=== PATIENT | female | born 1950 | race Caucasian/White ===

== ENCOUNTER 2023-05-26 10:32 | Emergency (ER) | payer MEDICARE, OTHER, SELFPAY ==
[2023-05-26 10:37] VITALS: BMI 36.3
[2023-05-26 10:40] VITALS: BP 134/79; PULSE 58; RESP 17; TEMP 36.7; O2SAT 97
--- NOTE | 2023-05-26 10:58 | XR_ITS ---
WS: [id number] Exam: XR knee LT 3V* [id number] Date/Time of Exam: 05/26/2023 11:22 AM Reason For Exam: left knee pain s/p fall on stairs No acute fracture or dislocation. Moderate degenerative narrowing of the medial joint compartment. No rmal soft tissues. No joint effusion. IMPRESSION: 1. Moderate DJD of the medial compartment. No fracture.
--- NOTE | 2023-05-26 12:38 | CT_ITS ---
WS: [id number] CT HEAD NONCONTRAST HISTORY: vision changes and TODD TECHNIQUE: Contiguous axial imaging performed through the brain in 2.5 mm imaging. Bone and soft tiss ue windows. Sagittal and coronal reformats reviewed. All CT scans at [facility] use at least one of these dose optimization techniques: automated exposure control; mA and/or kV adjustment per pa tient size (includes targeted exams where dose is matched to clinical indication); or iterative recon struction. DLP: 1076.08 mGy.cm COMPARISON: 04/19/2009 No acute intracranial hemorrhage, midline shift or mass effect. Area of decreased attenuation in the LEFT frontal lobe on the axial images noted to be a prominent ngo lcus on the coronal and sagittal sequences. There is mild symmetric cerebral and cerebellar atrophy w ith minimal small vessel ischemic disease. Ventricles: Normal size with no hydrocephalus. No inferior displacement of cerebellar tonsils. Paranasal sinuses: As visualized are clear. Mastoid air cells: Well pneumatized. Calvarium and scalp: Skull is intact with no soft tissue edema or swelling. Mild atherosclerotic plaque in the intracranial carotid arteries. IMPRESSION: 1. No acute intracranial hemorrhage or edema. 2. Mild cerebral and cerebellar atrophy and small vessel ischemic disease.
--- NOTE | 2023-05-26 12:38 | XR_ITS ---
WS: [id number] Exam: XR chest 1V portable [id number] Date/Time of Exam: 05/26/2023 12:38 PM Reason For Exam: chest pain Comparison 04/19/2009. The lungs are clear and fully expanded. Normal cardiomediastinal silhouette for technique. No pleural effusions. Bony structures are intact. High riding RIGHT humeral head probably indicates longstandin g rotator cuff tear. IMPRESSION: 1. No acute cardiopulmonary finding.
--- NOTE | 2023-05-26 12:38 | XR_ITS ---
WS: [id number] Exam: XR knee RT 3V* [id number] Date/Time of Exam: 05/26/2023 12:38 PM Reason For Exam: knee pain after fall No fracture or dislocation. Moderately advanced tricompartmental degenerative change. Probable loose joint bodies. No joint effusion. Unremarkable soft tissues. IMPRESSION: 1. Advanced tricompartmental DJD. Probable loose joint bodies. 2. No fracture.
--- NOTE | 2023-05-26 12:41 | W.ED.EXTPRO ---
Documented by User: Vania Hatch, SURVEY FIELD TECHNICIAN-C 06/02/23 07:02 HPI - Extremity Problem General: Chief complaint: Extremity Injury, Lower Stated complaint: fall Time Seen by Provider: 05/26/23 10:47 History of Present Illness: Patient reports today that she has had 2 falls while here with her significant other who is hospitalized. Patient states that she has a history of stroke with right-sided late effects 2 years ago, and history of 2 heart attacks. She reports that over the past couple of weeks she has been having some left-sided chest pain however she was thinking it was just stress from all of the medical issues of her significant other. She reports that this morning she had been having chest pain she has also noticed a lot more dizziness lately. She states that she was walking and tripped over something in the floor this morning in the hospital causing her to fall. She does not recall hitting her head or losing consciousness. She states that that happened around 830 this morning and just a few minutes after that she noticed that she was having tunnel vision. She reports that her balance has been off and she has been struggling with the tunnel vision and trying to be very careful. She states that a little bit later in the day she was walking and fell onto her knee. She reports that she did not hit her head that she knows of and she did not have loss of consciousness. She complains of right-sided knee pain now. She states that she is generally sore all over. She reports that she is not currently having chest pain but was this morning prior to the fall. She denies fever or chills. She does report that she is on anticoagulant medications. Associated symptoms: Reports chest pain; Deny fever(s) Review of Systems Const: Denies: fever(s) or chills Eyes: Reports: change in vision Card: Reports: chest pain and lightheadedness; Denies: palpitations or irregular heart rhythm Resp: Denies: dyspnea, productive cough or non-productive cough GI: Denies: abdominal pain, nausea or vomiting : Denies: flank pain, difficulty voiding or dysuria Musc: Reports: extremity pain and joint pain Neuro: Reports: headache(s) (Off and on for the past couple of weeks) and lack of coordination Physical Exam Const: COMMON NORMALS: no acute distress, patient oriented x3 and alert HENMT: COMMON NORMALS: normocephalic, hearing grossly normal bilaterally and moist oral mucous membranes HEAD & SCALP: normocephalic Eye: COMMON NORMALS: Equal, round and reactive pupils present, EOMs intact bilaterally and conjunctivae normal CONJUNCTIVA: Yes conjunctivae normal PUPIL: Yes Equal, round and reactive pupils present Neck/C-Spine: COMMON NORMALS: no JVD Resp: COMMON NORMALS: normal respiratory effort, No use of accessory muscles and clear to auscultation bilaterally AUSCULTATION: clear to auscultation bilaterally Cardio: COMMON NORMALS: no JVD, regular rate, regular rhythm, S1 normal heart sound present and S2 normal heart sound present RATE: regular rate RHYTHM: regular rhythm HEART SOUNDS: S1 normal heart sound present and S2 normal heart sound present GI: COMMON NORMALS: Normal to inspection, nondistended, normoactive bowel sounds present, Soft to palpation and non-tender PALPATION: Yes Soft to palpation Neuro: COMMON NORMALS: patient oriented x3, CN's II-XII intact bilaterally (Slight weakness noted to the right upper extremity-late effect previous CVA) and moves all extremities SENSORIUM/ORIENTATION: Yes alert Course Vital Signs: Vital signs: Vital Signs Temperature 98.0 F 05/26/23 10:40 Pulse Rate 60 05/26/23 17:46 Respiratory Rate 20 H 05/26/23 17:46 Blood Pressure 152/86 05/26/23 17:46 Pulse Oximetry 96 05/26/23 17:46 Oxygen Delivery Me thod Room Air 05/26/23 10:40 MDM - Extremity (Nontraumatic) Medical Decision Making Consider functional fall versus medical etiology for fall including arrhythmia, ACS, cerebrovascular incident, syncope Given the patient is on anticoagulant medication and complaining of tunnel vision CT head ordered. CT head is negative for any acute abnormalities. Lab work-up is essentially unremarkable. X-rays are negative for any acute osseous deformity. Extensive arthritis noted bilateral knees. Discussed with patient conservative treatment for knee pain at home. Follow-up with primary care provider. Return to the ER as needed for any new or worsening symptoms. Patient discharged home in stable condition Chart reviewed and patient discussed with midlevel. Agree with assessment and plan. Lab Data 05/26/23 13:35 05/26/23 13:35 Laboratory Results WBC 5.92 10^3/uL (3.29-11.43) 05/26/23 13:35 RBC 4.77 10^6/uL (3.85-5.65) 05/26/23 13:35 Hgb 13.90 g/dL (11.27-16.99) 05/26/23 13:35 Hct 43.0 % (36-47) 05/26/23 13:35 MCV 90.1 fl (85-98) 05/26/23 13:35 MCH 29.1 pg (27-33) 05/26/23 13:35 MCHC 32.3 g/dL (30-55) 05/26/23 13:35 RDW 14.1 % (12.1-15.1) 05/26/23 13:35 Plt Count 274 10^3/cmm (157-399) 05/26/23 13:35 MPV 9.5 fL (7.4-10.4) 05/26/23 13:35 Neut % (Auto) 65.3 % 05/26/23 13:35 Lymph % (Auto) 24.2 % 05/26/23 13:35 [place] % (Auto) 6.8 % 05/26/23 13:35 Eos % (Auto) 2.4 % 05/26/23 13:35 Baso % (Auto) 0.8 % 05/26/23 13:35 Neut # (Auto) 3.87 10^3/uL (1.8-7.7) 05/26/23 13:35 Lymph # (Auto) 1.4 10^3/uL (0.8-4.8) 05/26/23 13:35 [place] # (Auto) 0.4 10^3/uL (0.2-0.9) 05/26/23 13:35 Eos # (Auto) 0.1 10^3/uL (0.0-0.8) 05/26/23 13:35 Baso # (Auto) 0.1 10^3/uL (0.0-0.1) 05/26/23 13:35 Nucleated RBC % (auto) 0 % 05/26/23 13:35 Nucleated RBCs # 0.0 /100WBC 05/26/23 13:35 PT 13.80 SECONDS (12.1-14.9) 05/26/23 13:35 INR 1.03 (0.8-1.2) 05/26/23 13:35 APTT 32.7 SECONDS (23.9-36.7) 05/26/23 13:35 Sodium 135 mmol/L (136-145) L 05/26/23 13:35 Potassium 4.2 mmol/L (3.5-5.1) 05/26/23 13:35 Chloride 101 mmol/L (98-107) 05/26/23 13:35 Carbon Dioxide 24 mmol/L (22-29) 05/26/23 13:35 Anion Gap 14.2 (5-19) 05/26/23 13:35 BUN 15 mg/dL (8-23) 05/26/23 13:35 Creatinine 0.6 mg/dL (0.5-0.9) 05/26/23 13:35 GFR Calculation Not Reportable 05/26/23 13:35 Glucose 100 mg/dL (65-115) 05/26/23 13:35 Calculated Osmolality 281 mOsm/kg (285-295) L 05/26/23 13:35 Calcium 9.4 mg/dL (8.5-10.5) 05/26/23 13:35 Total Bilirubin 0.4 mg/dL (0.15-1.2) 05/26/23 13:35 AST 28 U/L (0-32) 05/26/23 13:35 ALT 33 U/L (0-33) 05/26/23 13:35 Alkaline Phosphatase 70 U/L (35-105) 05/26/23 13:35 Troponin T Baseline 7 ng/L (0-10) 05/26/23 13:35 Troponin T 120 Minute 7.07 ng/L (0-10) 05/26/23 15:27 Delta Troponin T 0.07 ABS# (0-10) 05/26/23 15:27 Total Protein 7.0 g/dL (6.6-8.7) 05/26/23 13:35 Albumin 4.8 g/dL (3.5-5.2) 05/26/23 13:35 Globulin 2.2 g/dL (1.3-4.6) 05/26/23 13:35 Discharge Plan Discharge Patient Disposition: Home Clinical Impression: Fall, Vertigo Condition: Stable Prescriptions: No Action Fish Oil Concentrate 1,000 mg Capsule 1,000 mg PO DAILY isosorbide mononitrate 30 mg tablet extended release 24 hr 30 mg PO QAM sertraline 100 mg tablet 100 mg PO BEDTIME clopidogrel 75 mg tablet 75 mg PO QAM Aspir-81 81 mg Tablet,Delayed Release (Dr/Ec) 81 mg PO DAILY metoprolol tartrate 50 mg tablet 50 mg PO BID Claritin 10 mg Tablet 10 mg PO DAILY PRN (Reason: Allergy Symptoms) diclofenac sodium 1 % gel 1 ea TOPICAL TID PRN (Reason: Pain) Marshall Mag Zinc Plus D3 333 mg-133 unit -133 mg-5 mg Tablet 1 tab PO BEDTIME Discharge Orders: Discharge ED (Routine); Ordered 05/26/23 Ordered By: Vania Hatch Referrals: Carlos Paz MD [Primary Care Provider] - Discharge Activity: Resume usual activity Activity Restrictions/Additional Instructions: Ice, rest, elevate the extremity. Today, your head CT did not show any acute abnormality. I recommend that you follow-up with your primary care provider the beginning of next week for reevaluation and continued monitoring. Return to the ER as needed for any new or worsening symptoms Coding Level of Care Code ED Emergency Department Director for [facility] Documented by User: Alli De Leon DO 05/27/23 06:10 HPI - Extremity Problem General: Chief complaint: Extremity Injury, Lower Stated complaint: fall Time Seen by Provider: 05/26/23 10:47 Course Vital Signs: Vital signs: Vital Signs Temperature 98.0 F 05/26/23 10:40 Pulse Rate 60 05/26/23 17:46 Respiratory Rate 20 H 05/26/23 17:46 Blood Pressure 152/86 05/26/23 17:46 Pulse Oximetry 96 05/26/23 17:46 Oxygen Delivery Me thod Room Air 05/26/23 10:40 MDM - Extremity (Nontraumatic) Medical Decision Making Consider functional fall versus medical etiology for fall including arrhythmia, ACS, cerebrovascular incident, syncope Given the patient is on anticoagulant medication and complaining of tunnel vision CT head ordered. Chart reviewed and patient discussed with midlevel. Agree with assessment and plan. Lab Data 05/26/23 13:35 05/26/23 13:35 Laboratory Results WBC 5.92 10^3/uL (3.29-11.43) 05/26/23 13:35 RBC 4.77 10^6/uL (3.85-5.65) 05/26/23 13:35 Hgb 13.90 g/dL (11.27-16.99) 05/26/23 13:35 Hct 43.0 % (36-47) 05/26/23 13:35 MCV 90.1 fl (85-98) 05/26/23 13:35 MCH 29.1 pg (27-33) 05/26/23 13:35 MCHC 32.3 g/dL (30-55) 05/26/23 13:35 RDW 14.1 % (12.1-15.1) 05/26/23 13:35 Plt Count 274 10^3/cmm (157-399) 05/26/23 13:35 MPV 9.5 fL (7.4-10.4) 05/26/23 13:35 Neut % (Auto) 65.3 % 05/26/23 13:35 Lymph % (Auto) 24.2 % 05/26/23 13:35 [place] % (Auto) 6.8 % 05/26/23 13:35 Eos % (Auto) 2.4 % 05/26/23 13:35 Baso % (Auto) 0.8 % 05/26/23 13:35 Neut # (Auto) 3.87 10^3/uL (1.8-7.7) 05/26/23 13:35 Lymph # (Auto) 1.4 10^3/uL (0.8-4.8) 05/26/23 13:35 [place] # (Auto) 0.4 10^3/uL (0.2-0.9) 05/26/23 13:35 Eos # (Auto) 0.1 10^3/uL (0.0-0.8) 05/26/23 13:35 Baso # (Auto) 0.1 10^3/uL (0.0-0.1) 05/26/23 13:35 Nucleated RBC % (auto) 0 % 05/26/23 13:35 Nucleated RBCs # 0.0 /100WBC 05/26/23 13:35 PT 13.80 SECONDS (12.1-14.9) 05/26/23 13:35 INR 1.03 (0.8-1.2) 05/26/23 13:35 APTT 32.7 SECONDS (23.9-36.7) 05/26/23 13:35 Sodium 135 mmol/L (136-145) L 05/26/23 13:35 Potassium 4.2 mmol/L (3.5-5.1) 05/26/23 13:35 Chloride 101 mmol/L (98-107) 05/26/23 13:35 Carbon Dioxide 24 mmol/L (22-29) 05/26/23 13:35 Anion Gap 14.2 (5-19) 05/26/23 13:35 BUN 15 mg/dL (8-23) 05/26/23 13:35 Creatinine 0.6 mg/dL (0.5-0.9) 05/26/23 13:35 GFR Calculation Not Reportable 05/26/23 13:35 Glucose 100 mg/dL (65-115) 05/26/23 13:35 Calculated Osmolality 281 mOsm/kg (285-295) L 05/26/23 13:35 Calcium 9.4 mg/dL (8.5-10.5) 05/26/23 13:35 Total Bilirubin 0.4 mg/dL (0.15-1.2) 05/26/23 13:35 AST 28 U/L (0-32) 05/26/23 13:35 ALT 33 U/L (0-33) 05/26/23 13:35 Alkaline Phosphatase 70 U/L (35-105) 05/26/23 13:35 Troponin T Baseline 7 ng/L (0-10) 05/26/23 13:35 Troponin T 120 Minute 7.07 ng/L (0-10) 05/26/23 15:27 Delta Troponin T 0.07 ABS# (0-10) 05/26/23 15:27 Total Protein 7.0 g/dL (6.6-8.7) 05/26/23 13:35 Albumin 4.8 g/dL (3.5-5.2) 08/31/23 13:35 Globulin 2.2 g/dL (1.3-4.6) 05/26/23 13:35 Discharge Plan Discharge Patient Disposition: Home Clinical Impression: Fall, Vertigo Condition: Stable Prescriptions: No Action Fish Oil Concentrate 1,000 mg Capsule 1,000 mg PO DAILY isosorbide mononitrate 30 mg tablet extended release 24 hr 30 mg PO QAM sertraline 100 mg tablet 100 mg PO BEDTIME clopidogrel 75 mg tablet 75 mg PO QAM Aspir-81 81 mg Tablet,Delayed Release (Dr/Ec) 81 mg PO DAILY metoprolol tartrate 50 mg tablet 50 mg PO BID Claritin 10 mg Tablet 10 mg PO DAILY PRN (Reason: Allergy Symptoms) diclofenac sodium 1 % gel 1 ea TOPICAL TID PRN (Reason: Pain) Marshall Mag Zinc Plus D3 333 mg-133 unit -133 mg-5 mg Tablet 1 tab PO BEDTIME Discharge Orders: Discharge ED (Routine); Ordered 05/26/23 Ordered By: Vania Hatch Referrals: Carlos Paz MD [Primary Care Provider] - Discharge Activity: Resume usual activity Activity Restrictions/Additional Instructions: Ice, rest, elevate the extremity. Today, your head CT did not show any acute abnormality. I recommend that you follow-up with your primary care provider the beginning of next week for reevaluation and continued monitoring. Return to the ER as needed for any new or worsening symptoms Coding Level of Care Code ED Emergency Department Director for [facility]
--- NOTE | 2023-05-26 12:44 | ECG_ITS ---
[facility] Test Date: 2023-05-26 Pat Name: Rukhsana Shaikh Department: Room: Gender: Female Leadership Recruiter: : 1950 Requested By: Vania Hatch Order Number: [id number] Payton MD: Jose David Wilson M.D. Measurements Intervals [place] Rate: 55 P: 23 TN: 178 QRS: -35 QRSD: 85 T: 49 QT: 430 QTc: 414 Interpretive Statements SINUS BRADYCARDIA LEFT AXIS DEVIATION [QRS AXIS < -30] PATTERN CONSISTENT WITH PULMONARY DISEASE No previous ECG available for comparison Electronically Signed On 05-26-2023 13:22:07 CDT by Jose David Wilson M.D. [id number]
[2023-05-26 13:58] LABS: Basophils # 0.1 10^3/uL (0.0-0.1); Basophils % 0.8 %; Eosinophils # 0.1 10^3/uL (0.0-0.8); Eosinophils % 2.4 %; Lymphocytes # 1.4 10^3/uL (0.8-4.8); Lymphocytes % 24.2 %; Mean Corpuscular HGB Conc 32.3 g/dL (30-55); Mean Corpuscular Hemoglobin 29.1 pg (27-33); Mean Corpuscular Volume 90.1 fl (85-98); Mean Platelet Volume 9.5 fL (7.4-10.4); Monocytes # 0.4 10^3/uL (0.2-0.9); Monocytes % 6.8 %; Neutrophils # 3.87 10^3/uL (1.8-7.7); Neutrophils % 65.3 %; Nucleated Red Blood Cells % 0 %; Platelet Count 274 10^3/cmm (157-399); Red Blood Count 4.77 10^6/uL (3.85-5.65); Red Cell Distribution Width 14.1 % (12.1-15.1); White Blood Count 5.92 10^3/uL (3.29-11.43)
[2023-05-26 14:00] VITALS: BP 184/105; PULSE 57; O2SAT 99
[2023-05-26 14:11] LABS: INR 1.03 (0.8-1.2)
[2023-05-26 14:12] LABS: Partial Thromboplastin Time 32.7 SECONDS (23.9-36.7)
[2023-05-26 14:14] LABS: Troponin(5th) Baseline 7 ng/L (0-10)
[2023-05-26 14:21] LABS: Alanine Aminotransferase 33 U/L (0-33); Albumin Level 4.8 g/dL (3.5-5.2); Alkaline Phosphatase 70 U/L (35-105); Anion Gap 14.2 (5-19); Aspartate Amino Transferase 28 U/L (0-32); Blood Urea Nitrogen 15 mg/dL (8-23); Calcium 9.4 mg/dL (8.5-10.5); Carbon Dioxide 24 mmol/L (22-29); Chloride 101 mmol/L (98-107); Creatinine Clr Calc Pharmacy 81.9305; Globulin 2.2 g/dL (1.3-4.6); Glucose 100 mg/dL (65-115); Osmolality Calculated 281 mOsm/kg (285-295); Potassium 4.2 mmol/L (3.5-5.1); Sodium 135 mmol/L (136-145); Total Bilirubin 0.4 mg/dL (0.15-1.2)
--- NOTE | 2023-05-26 14:38 | ECG_ITS ---
[facility] Test Date: 2023-05-26 Pat Name: Rukhsana Shaikh Department: Room: Gender: Female Pbx Teacher: : 1950 Requested By: Vania Hatch Order Number: [id number] Payton MD: Jose David Wilson M.D. Measurements Intervals [place] Rate: 54 P: 32 [place]: 175 QRS: -22 QRSD: 86 T: 51 QT: 449 QTc: 426 Interpretive Statements SINUS BRADYCARDIA BORDERLINE LEFT AXIS DEVIATION [QRS AXIS < -20] Compared to ECG 05/26/2023 12:44:13 No significant changes Electronically Signed On 05-26-2023 17:37:59 CDT by Jose David Wilson M.D. [id number]
--- NOTE | 2023-05-26 15:08 | PC.NURSE ---
PT PLACED ON CONTINUOUS NIBPS, PO2, AND CM
[2023-05-26 16:29] LABS: Troponin 5 2HR 7.07 ng/L (0-10); Troponin 5 2HR Delta 0.07 ABS# (0-10)
[2023-05-26 17:00] VITALS: BP 146/73; PULSE 57; RESP 21; O2SAT 97
[2023-05-26] MEDS: HYDROcodone-acetaminophen 5-325 mg Tablet 1 TAB PO (17:38)
[2023-05-26 17:46] VITALS: BP 152/86; PULSE 60; RESP 20; O2SAT 96
== END 2023-05-26 17:47 | disposition home or self-care (01) ==
PROVIDERS: Emergency Provider Nurse Practitioner Family; Family Provider Internal Medicine Cardiovascular Disease; PCP Internal Medicine Cardiovascular Disease
DX: R42 Dizziness and giddiness (principal); W18.09XA Striking against other object with subsequent fall, initial encounter; Y92.239 Unspecified place in hospital as the place of occurrence of the external cause; Z79.82 Long term (current) use of aspirin; Z79.02 Long term (current) use of antithrombotics/antiplatelets
CPT/HCPCS: 36415; 70450; 71045; 73562; 80053; 84484; 85025; 85610; 85730; 93005; 99285